=== PATIENT | female | born 1965 | race Caucasian/White ===

== ENCOUNTER 2017-02-21 19:27 | Emergency (ER) | payer BC, MEDICAID ==
[~2017-02-21] VITALS: Ht 162.6 cm; Wt 106.0 kg
[2017-02-21 19:37] VITALS: BP 132/112
== END 2017-02-21 21:47 | disposition left against medical advice (07) ==
LOC: ER 20:06
DX: T42.6X4A Poisoning by other antiepileptic and sedative-hypnotic drugs, undetermined, initial encounter (principal); F55.8 Abuse of other non-psychoactive substances; Y92.9 Unspecified place or not applicable; Z53.21 Procedure and treatment not carried out due to patient leaving prior to being seen by health care provider